=== PATIENT | female | born 1970 | race Caucasian/White ===

== ENCOUNTER → 2017-10-13 | Day surgery (SDC) | payer OTHER ==
[2017-10-05 14:00] LABS: ANION GAP 15.2 mmol/L (8-16); CALCIUM 9.9 mg/dL (8.4-10.2); CREATININE, SERUM 1.23 mg/dL (0.57-1.11); POTASSIUM 4.2 mmol/L (3.5-5.1)
[~2017-10-13] MED LIST: ADVAIR 100-501 EACH PO; ADVAIR HFA; B12; BUPIVACAINE HCL 0.5% INJ 30 ML VIAL INJ ONE; CEFAZOLIN SOD 1 GM VIAL ONE; CEFAZOLIN SOD 2 GM/D5W 50ML 50 ML IV ONE; CYMBALTA20 MG PO; FENTANYL CITRATE/PF 100MCG/2 ML INJ ONE; FLAXSEED1000 MG; FLECTOR1 EACH; FLONASE; FLONASE NS; GEODON20 MG; GEODON20 MG PO; GLYCOPYRROLATE INJ 1MG/ 5 ML SYR ONE; HYDROCHLOROTHIA25 MG PO; INVOKANA; KETOROLAC TROMETHAMINE 30 MG/ML VIAL ONE; LAMICTAL100 MG PO; LIDOCAINE HCL 2% LOCAL INJ 5 ML SDV VIAL INJ ONE; METFORMIN HCL500 MG PO; MIDAZOLAM HCL 2 MG/2 ML VIAL ONE; NAPROXEN250 MG PO; NEOSTIGMINE 1 MG/ML 10ML VIAL ONE; NEXIUM40 MG PO; NOVOLOG SQ; ONDANSETRON HCL INJ 2 MG/ML VIAL ONE; PRAVASTATIN SOD20 MG PO; PROPOFOL IV EMULSION 10 MG/ML 20 ML VIAL ONE; SEVOFLURANE INHAL SOLN 250 ML PEN BTL ONE; SINGULAIR10 MG PO; SYNTHROID50 MCG PO; TRAZODONE HCL50 MG PO; VITAMIN D1000 UNI1 PO; WELLBUTRIN100 MG PO; XANAX0.25 MG; ZESTRIL30 MG; ZESTRIL30 MG PO
--- NOTE | 2017-10-13 13:41 | Operative Report ---
DATE OF PROCEDURE: October 13, 2017 PREOPERATIVE DIAGNOSES 1. Neuroma, left 2nd. 2. 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 POSTOPERATIVE DIAGNOSES 1. Neuroma, left 2nd. 2. 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 PROCEDURES 1. Excision of neuroma, left 2nd. 2. Excision of neuroma, left 3rd. 3. Application of human allograft to the excision of neuroma area to prevent adhesions. MATERIALS: An human allograft wrap DS wet 2 x 2, lot number [id number], date of expiration March 09, 2019. COMPLICATIONS: None. CONDITION: Stable. PROCEDURE IN DETAIL: Under mild sedation, the patient was brought to the operating room and placed on the operating table in the supine position. Following IV sedation, anesthesia was obtained with general anesthetic. At this point, the left foot was scrubbed, prepped and draped in the usual aseptic manner. The pneumatic ankle tourniquet was infiltrated to 250 mmHg. The leg was lowered to the table. Attention was then directed to the dorsal aspect of the left 2nd where a linear incision was made overlying the neuroma area. The incision was deepened via sharp and blunt dissection down to the level of the neuroma. The intermetatarsal ligament was transected. The neuroma was then visualized. It was dissected distally over the distal medial, distal lateral, proximal medial and proximal lateral. It was passed from the operating table and sent for pathology. The area was then flushed with copious amounts of normal sterile saline solution. The area was inspected for any further signs of neuroma. No more were noted. Neuroma of 3rd interspace. The procedure was performed in the exact same manner as the procedure named above. The application of human allograft. At this point, human allograft patch that was cut in half was applied to the 2nd interspace into the 3rd interspace in the area of the neuroma and its resection to prevent adhesions and to prevent stump neuroma to the area. At this point, a TLS drain was inserted in order to prevent hematoma. The area was then closed closing the deep layer with 4-0 Vicryl and 4-0 nylon. The dressings were applied consisting of Adaptic ointment, Kerlix and an Mahamed bandage. The tourniquet was deflated. There was noted to be hyperemic response to all the digits. The patient tolerated the procedure and anesthesia well without complications. Was transferred to the recovery room with vital signs stable and vascular status intact to both feet. The patient will be discharged home when she meets criteria. She was given instructions to be nonweightbearing and to ice and elevate the foot while at rest. Follow up with me in the office, and to call the office for any questions, concerns or any problems arise. Job#: [id number] ANSON SINGH
== END | disposition home or self-care (01) ==
LOC: OR 08:08
PROVIDERS: ATTEND Podiatrist Foot & Ankle Surgery
DX: G57.62 Lesion of plantar nerve, left lower limb (principal); J45.909 Unspecified asthma, uncomplicated; I10 Essential (primary) hypertension; E11.9 Type 2 diabetes mellitus without complications; E66.01 Morbid (severe) obesity due to excess calories; K21.9 Gastro-esophageal reflux disease without esophagitis; F31.9 Bipolar disorder, unspecified; Z91.041 Radiographic dye allergy status; Z88.2 Allergy status to sulfonamides; Z01.810 Encounter for preprocedural cardiovascular examination; Z01.812 Encounter for preprocedural laboratory examination; Z79.4 Long term (current) use of insulin
CPT/HCPCS: 28080 ×2; 36415 ×2; 80048; 81025; 82948; 88304; 93005; J0690; J1885; J2001; J2250; J2405; J2710; J3490